=== PATIENT | female | born 1945 | race Caucasian/White ===

== ENCOUNTER 2017-10-05 09:23 | Day surgery (SDC) | payer OTHER ==
[~2017-10-05] VITALS: Ht 154.9 cm; Wt 54.9 kg
[2017-10-05] MEDS ORDERED: LR 1,000 ML IV.SOLN IV ONE (12:05)
[2017-10-05] MEDS ORDERED: fentaNYL CITRATE 250 MCG/5 ML AMP IV ONE (12:05)
[2017-10-05] MEDS ORDERED: PROPOFOL 200MG/ 20ML VIAL (DIPRIVAN) IV ONE (12:05)
[2017-10-05] MEDS ORDERED: fentaNYL CITRATE/PF 100 MCG/2 ML AMP IVP ONE (12:05)
[2017-10-05] MEDS ORDERED: ONDANSETRON HCL 4 MG/2 ML VIAL IVP ONE (12:05)
[2017-10-05] MEDS ORDERED: MIDAZOLAM HCL 5 MG/5 ML VIAL IVP ONE (12:05)
[2017-10-05] MEDS ORDERED: KETOROLAC TROMETHAMINE 30 MG VIAL IVP ONE (12:05)
[2017-10-05] MEDS ORDERED: CEFAZOLIN 2 GM IVPB PREMIX 50 ML IV ONE (12:05)
[2017-10-05] MEDS ORDERED: NS 1000 ML BAG IV ONE (12:05)
[2017-10-05] MEDS ORDERED: POLYMYXIN 500,000/BACIT.10,000 UNITS in NS IRR 1 L IR ONE (12:11)
[2017-10-05] MEDS ORDERED: LR 1,000 ML IV SCH (13:11)
[2017-10-05] MEDS ORDERED: MORPHINE 4 MG/ML INJ. SYRINGE IVP PRN ×3 (13:15)
[2017-10-05] MEDS ORDERED: METOCLOPRAMIDE HCL 10 MG/2 ML VIAL IVP PRN (13:15)
[2017-10-05 14:11] VITALS: BP_SYST 158
== END 2017-10-05 15:00 | disposition home or self-care (01) ==
LOC: SDS 09:23
PROVIDERS: ATTEND Orthopaedic Surgery
DX: S52.021A Displaced fracture of olecranon process without intraarticular extension of right ulna, initial encounter for closed fracture (principal); W19.XXXA Unspecified fall, initial encounter; Y93.9 Activity, unspecified; Y92.89 Other specified places as the place of occurrence of the external cause; Y99.9 Unspecified external cause status; F17.200 Nicotine dependence, unspecified, uncomplicated; I63.9 Cerebral infarction, unspecified; M19.90 Unspecified osteoarthritis, unspecified site; E11.22 Type 2 diabetes mellitus with diabetic chronic kidney disease; I12.9 Hypertensive chronic kidney disease with stage 1 through stage 4 chronic kidney disease, or unspecified chronic kidney disease; N18.9 Chronic kidney disease, unspecified; M81.0 Age-related osteoporosis without current pathological fracture
CPT/HCPCS: 24685; 76001; 82962; A4565; C1713; J0690; J1885; J2250; J2405; J2704; J3010 ×2; J7030; J7120